=== PATIENT | female | born 1985 | race Caucasian/White ===

== ENCOUNTER → 2017-10-27 | Outpatient (CLI) | payer OTHER | LOC: FIMAGING 10:33 | PROVIDERS: ATTEND Advanced Practice Midwife | DX: O09.213 Supervision of pregnancy with history of pre-term labor, third trimester (principal); Z3A.22 22 weeks gestation of pregnancy ==

== ENCOUNTER → 2017-12-22 | Outpatient (CLI) | payer OTHER | LOC: FIMAGING 13:25 | PROVIDERS: ATTEND Advanced Practice Midwife | DX: Z34.83 Encounter for supervision of other normal pregnancy, third trimester (principal); Z3A.19 19 weeks gestation of pregnancy ==

== ENCOUNTER → 2018-01-22 | Outpatient (CLI) | payer OTHER | LOC: FIMAGING 11:10 | PROVIDERS: ATTEND Advanced Practice Midwife | DX: O36.5930 Maternal care for other known or suspected poor fetal growth, third trimester, not applicable or unspecified (principal); Z3A.34 34 weeks gestation of pregnancy ==

== ENCOUNTER 2018-03-05 10:39 | Inpatient (IN) | payer OTHER ==
[2018-03-05] MEDS ORDERED: EPSOM SALT 454 GM TP PRN (10:45)
[2018-03-05] MEDS ORDERED: TERBUTALINE SULFATE 1 MG/ML VIAL IV PRN (10:45)
[2018-03-05] MEDS ORDERED: LR 1,000 ML IV PRN (10:45)
[2018-03-05] MEDS ORDERED: AMPICILLIN SODIUM 1 GM in NS 100 ML IV SCH (10:45)
[2018-03-05] MEDS ORDERED: IBUPROFEN 600 MG TAB PO PRN (10:45)
[2018-03-05] MEDS ORDERED: OXYTOCIN/RINGERS LACTATE 1,000 ML IV PRN (10:45)
[2018-03-05] MEDS ORDERED: OLIVE OIL 118 ML BTL MISC PRN (10:45)
[2018-03-05] MEDS ORDERED: LIDOCAINE 1% 300 MG/30 ML SDV SC PRN (10:45)
[2018-03-05] MEDS ORDERED: AMPICILLIN SODIUM 2 GM in NS 100 ML IV ONE (10:45)
[2018-03-05] MEDS ORDERED: MISOPROSTOL 200 MCG TAB PR PRN (10:45)
[2018-03-05] MEDS ORDERED: AMPICILLIN SODIUM 2 GM/10 ML VIAL ONE (10:48)
[2018-03-05] MEDS ORDERED: LIDOCAINE 1% 300 MG/30 ML SDV ONE ×2 (11:22→11:34)
[2018-03-05] MEDS ORDERED: OLIVE OIL 118 ML BTL ONE (11:34)
[2018-03-05] MEDS ORDERED: METHYLERGONOVINE MAL 0.2 MG/ML INJ ONE (11:43)
[2018-03-05] MEDS ORDERED: oxyCODONE IR 5 MG TAB PO PRN (12:11)
[2018-03-05] MEDS ORDERED: HYDROCORTISONE 0.5% CREAM TP PRN (12:11)
[2018-03-05] MEDS ORDERED: SIMETHICONE 80 MG TAB CHEW PO PRN (12:11)
--- NOTE | 2018-03-05 12:12 | PDGENHP ---
History and Physical History and Physical: H&P written post delivery due to precipitous delivery Care: [facility] HPI: Cindy Dickerson is a 32yo with IUP@ 40-6wks that presents to L&D with c/ o since approximately 0900. She reports pain with contractions 12/02. She denies any LOF, VB. She reports +FM. EDC: 02/27/2018 which is based on LMP: 05/23/17 which is known and consistent with Ultrasound at 8 weeks. Her is complicated by: h/o PTD, pelvic floor dysfunction, +GBS bacteruria Review of Systems: Constitutional: Denies any fever, chills, or fatigue HEENT: denies any visual changes, difficulty swallowing, hearing loss Cardiovascular: Denies any chest pain, palpitations, leg swelling Respiratory: denies any cough, wheezing, or shortness of breathe GI: Denies any nausea, vomiting, diarrhea, constipation : denies any dysuria, urgency, frequency, vaginal bleeding Musculoskeletal: denies any muscle or bone pain Skin: denies any rashes Neuro: denies any headache, seizures, lightheadedness, dizziness, or loss of consciousness Psychiatric: denies any depression, anxiety, or SI/HI thoughts HISTORY: Previous OB history: PTD @35wks Past medical history: overactive bladder/pelvic floro dysfunction, h/o OCD Past surgical history:oral surgery Social: Denies any alcohol, tobacco, or drug use. Family history: Not relevant Medications: PNV Allergies (list reaction): NKDA LABS: Rh: A+ ABS: Neg Rubella: Immune HbsAg: NR HIV: NR VDRL: NR 1hr: 121 GC: Neg Chlamydia: Neg Pap: Normal GBS: + PHYSICAL EXAM: Constitutional: WN, A&Ox3 HEENT: normocephalic atraumatic, supple Skin: Warm, dry, intact Heart: RRR, no murmur Chest: CTA-B Abdomen: Soft, nontender, gravid SVE: 9/100/0 Extremities: no edema, negative homans sign Neuro: grossly normal Psych: normal affect assessment: FHT 130 Contractions: palpation q 2 Assessment: 1) [id number] with IUP@ 40-6wks 2) active labor 3) GBS + 4) FHR reassuring Plan: 1) Admit to L&D 2) anticipate Today's visit was approximately 30 min, of which >50% of visit 20 min, was spent face to face with pt on direct counseling/coordination of care.
--- NOTE | 2018-03-05 12:15 | OBDEL ---
Info Type: Vaginal Presentation at Delivery: Vertex L&D Analgesia/Anesthesia Type: None GBS+: Yes Indications for Delivery: Spontaneous Labor, SROM Vaginal Delivery - Delivery Provider Delivery Physician/CNM: Apoorva Vega - Labor and Delivery Onset of Contractions Date: 03/05/18 Onset of Contractions Time: 09:00 Onset of Contractions Type: Spontaneous Rupture of Membranes Date: 03/05/18 Rupture of Membranes Time: 11:05 Rupture of Membranes Type: Spontaneous Amniotic Fluid Color: Clear Dilation Complete Date: 03/05/18 Dilation Complete Time: 10:46 Placenta Delivery Date: 03/05/18 Placenta Delivery Time: 11:38 Total Hours of Labor: 2 Laceration: 1st Degree, Other (Specify) (labial) Repair: 3-0, 4-0, Vicryl, Chromic Vaginal Sponge Count Correct: Yes Vaginal Needle Count Correct: Yes Vaginal Sweep Performed: Yes EBL: 200 Delivery Events: None Delivery Comment: delivered precipitously Data BRENDA: 02/27/18 Gestational Age: 40 week(s) and 6 day(s) Barney Delivery Date: 03/05/18 Delivery Time: 11:18 Sex of Infant: Female Score (1 Min): 8 Score (5 Min): 9 ICD10 Worksheet Patient Problems: Problems Problem Status Onset (spontaneous vaginal delivery) Acute Positive GBS test Acute Precipitous delivery Acute - ICD10 Problem Qualifiers (1) Precipitous delivery (2) Positive GBS test
[2018-03-05] MEDS: IBUPROFEN 600 MG TAB PO SCH ×2 (12:22→18:22)
[2018-03-05] MEDS: ACETAMINOPHEN 325 MG TAB PO SCH ×3 (13:54→19:04)
[2018-03-05] MEDS: DOCUSATE SODIUM 100 MG CAP PO PRN (18:21)
[2018-03-06] MEDS: ACETAMINOPHEN 325 MG TAB PO SCH ×3 (00:38→20:30)
[2018-03-06] MEDS: IBUPROFEN 600 MG TAB PO SCH ×4 (00:38→18:27)
[2018-03-06] MEDS: DOCUSATE SODIUM 100 MG CAP PO PRN (05:42)
--- NOTE | 2018-03-06 10:56 | OBPP ---
Progress Note Assessment/Plan: Assessment: 32 y/o s/p ppd#2 going well Plan: Routine pp care plan d/c home tomorrow 03/07/18 11:01 Subjective/ Course: 03/06/18 11:02 feeling good- baby is a little sleepy, but going ok. Pain well controlled with pain meds. Vag bleeding wnl, voiding, tolerating activity. Objective: Temp Pulse Resp BP Pulse Ox 36.4 C 75 16 100/61 95 03/06/18 08:30 03/06/18 08:30 03/06/18 08:30 03/06/18 08:30 03/05/18 20:00 Uterine Position/Fundal Height: Umbilicus -1 Uterine Tone: Firm Physical Exam - Physical Exam EENT: PERRL/EOMI Neck: non-tender Respiratory: normal breath sounds Cardiac/Chest: regular rate, rhythm Extremities: normal range of motion Skin: normal color, warm/dry Neuro/Psych: alert, normal mood/affect, oriented x 3
[2018-03-07] MEDS: IBUPROFEN 600 MG TAB PO SCH ×2 (00:45→07:50)
[2018-03-07] MEDS: ACETAMINOPHEN 325 MG TAB PO SCH ×2 (00:46→07:50)
[2018-03-07 08:35] VITALS: BP 105/66
--- NOTE | 2018-03-07 11:00 | OBGCSDC ---
General Delivery Information - General Info : 2 Para: 2 Abortions: 0 Type: Vaginal L&D Analgesia/Anesthesia Type: None Admission Date: 03/05/18 - Hospital Course : 03/07/18 10:53 S) Pt doing well, reports min pain and bleeding. she is ambulating and voiding without difficulty. She is . She desires discharge home today. O) VSS, afebrile constitutional: WNWF, A&Ox3 HEENT: normocephalic, atraumatic, supple Heart: RRR, No murmur Chest: CTA-B Abdomen: Soft, nontender Uterus: Firm at U-2 Lochia: Minimal rubra Perineum: Intact, healing well Extremities: Trace edema, and negative Liz's sign Neuro: Grossly normal A) 32 year-old S/P PPD#2 P) Discharge home today Continue Pelvic rest x6wks Discussed danger signs (infection, preeclampsia, depression, heavy bleeding, etc) RTO in 2/4/6 weeks Vaginal - Delivery Provider Delivery Physician/CNM: Apoorva Vega - Diagnosis Labor: Spontaneous Rupture of Membranes Type: Spontaneous Amniotic Fluid Color: Clear Laceration: 1st Degree, Other (Specify) (labial) Repair: 3-0, 4-0, Vicryl, Chromic Delivery Events: None - Delivery EBL: 200 Data BRENDA: 02/27/18 Gestational Age: 41 week(s) and 1 day(s) Barney Delivery Date: 03/05/18 Delivery Time: 11:18 Sex of : Female [place] Weight (gm): 3092 g Score (1 Min): 8 Score (5 Min): 9 Discharge Information - Discharge Information Prescriptions: Docusate Sodium [Colace 100 MG (*)] 100 mg PO BID PRN 14 Days #30 cap PRN Reason: Constipation Ibuprofen [Motrin (*)] 600 mg PO Q6 PRN #30 tab PRN Reason: Pain, Inflammatory/Cramping Condition: Good
[2018-03-07] MEDS: DOCUSATE SODIUM 100 MG CAP PO PRN (12:05)
== END 2018-03-07 12:45 | disposition home or self-care (01) | DRG 807 ==
LOC: FLD 10:39 → FOB 14:42
PROVIDERS: ADMIT Advanced Practice Midwife; ATTEND Advanced Practice Midwife
PROC: 0HQ9XZZ Repair Perineum Skin, External Approach (ICD-10-PCS; principal; 2018-03-05)
PROC: 10E0XZZ Delivery of Products of Conception, External Approach (ICD-10-PCS; principal; 2018-03-05)
DX: O62.3 Precipitate labor (principal); O70.0 First degree perineal laceration during delivery; O99.824 Streptococcus B carrier state complicating childbirth; Z3A.41 41 weeks gestation of pregnancy; Z37.0 Single live birth
CPT/HCPCS: J0290; J2210

== ENCOUNTER → 2018-09-28 | Outpatient (CLI) | payer OTHER | LOC: FIMAGING 14:25 | PROVIDERS: ATTEND Surgery | DX: N60.41 Mammary duct ectasia of right breast (principal) ==